=== PATIENT | male | born 1975 | race African-American/Black ===

== ENCOUNTER 2016-11-03 06:39 | Observation (INO) | payer MEDICAID ==
[2016-11-03 06:55] VITALS: BMI 33.9
[2016-11-03 07:00] LABS: AUTOMATED EOSINOPHIL 1.2 % (0-5); AUTOMATED LYMPH 32.8 % (17-44); AUTOMATED MONOCYTE 16.3 % (3-10); AUTOMATED NEUTROPHIL 48.7 % (45-76); MPV 7.5 fL (7.4-10.4)
[2016-11-03 07:14] LABS: BLOOD UREA NITROGEN 14 MG/DL (9-20); CALCIUM 8.9 MG/DL (8.4-10.2); CALCULATED OSMOLALITY 269 MOs/Kg (270-290); CHLORIDE 105 mEq/L (98-107); GLUCOSE 98 MG/DL (70-99); SODIUM LEVEL 139 mEq/L (137-146); TOTAL PROTEIN 7.4 G/DL (6.3-8.2)
--- NOTE | 2016-11-03 07:31 | DIRPT ---
CLINICAL DATA: Chest pain. EXAM: PORTABLE CHEST 1 VIEW COMPARISON: November 13, 2012. FINDINGS: The heart size and mediastinal contours are within normal limits. Both lungs are clear. No pneumothorax or pleural effusion is noted. The visualized skeletal structures are unremarkable. IMPRESSION: No acute cardiopulmonary abnormality seen. Electronically Signed By: Pankaj Zelaya Jr, M.D. On: 11/03/2016 07:28
[2016-11-03 07:40] LABS: PARTIAL THROMB. TIME 25.8 SEC (22-35)
--- NOTE | 2016-11-03 07:50 | EDPRACDOC ---
- General Information Chief Complaint: Chest Pain Stated Complaint: CP Time Seen by Provider: 11/03/16 07:38 Information Source: Patient Mode of Arrival: Residential Home Medications: Home Medications Cimetidine [Tagamet] 400 mg PO .PRN PRN 11/03/16 Allergies/Adverse Reactions: Allergies Allergy/AdvReac Type Severity Reaction Status Date / Time Penicillins Allergy Severe Hives* Verified 11/03/16 07:26 - History of Present Illness Onset: 3 days Chest Pain Location: Reports: Substernal, Left Chest Pain Radiation: Reports: Shoulder (L), Other (BILATERAL EARS) Symptoms Occur: Reports: Gradually, At Rest, With light exertion Cardiac Risk Factors: Reports: Smoker. Denies: Family History, Hyperlipidemia, Hypertension, Diabetes, Cocaine Cardiac History of: Denies: Similar Pain in Past, Cardiac Cath, Stress Test PE Risk Factors: Reports: None Prehospital Care: Reports: None Pain Came On: Reports: Suddenly Pain Status: Resolved Pain Description: Reports: Pressure, Aching, Tightness, Other (PINS AND NEEDLES LEFT ARM) Pain Severity: Moderate (LASTING 5-10 MINUTES.RECU) Pain Worsens With: Reports: Exertion (RNT SEVERAL ALECIA PER DAY.) Pain Improves With: Reports: Rest Associated Signs and Symptoms: Reports: SOB, Diaphoretic. Denies: Nausea, Vomiting, Calf Pain or Swelling, Chest Rash ED Past Medical History - History Reviewed Yes Nurses notes reviewed and agree except as marked No Past Medical History: Yes Patient has no past medical history - Patient Medical History Psychological History: Denies: Depression Surgical History: Reports: No Significant History - Social Medical History Smoking Status: Heavy tobacco smoker (5 or more cigarettes/day or daily pipe/ cigar) ETOH: None Substance Abuse: None Lives With: Spouse Lives In: Home EDM Review of Systems - Review of Systems ROS Negative Except as Marked: Yes All systems reviewed and were negative except as marked - Physical Exam Constitutional: Alert (Awake), No apparent distress Oriented to: Time, Person, Place Last recorded Vital Signs: Last Vital Signs Temp 98.6 F 11/03/16 06:44 Pulse 78 11/03/16 06:44 Resp 20 11/03/16 06:44 BP 147/81 11/03/16 06:44 Pulse Ox 97 11/03/16 06:44 Oxygen Pulse Oxygen Saturation 97 O2 Device Room Air Oxygen Flow Rate Fraction of Inspired Oxygen ( FIO2) - HEENT Head: Normal ( normocephalic) Eye Exam: Normal (PERRL, EOMI, Sclera white) Oropharynx: Normal Nose: No Symptoms Reported (septum midline) Neck: Normal (FROM, trachea at midline) - Respiratory/Cardiovascular Respiratory: Normal - CTA (BBS clear to auscultation without adventitious sounds ) Cardiovascular: Normal (RRR without murmur, gallop or rub) - GI Auscultation: Normal (NABS) Palpation: Normal (Soft,No rebound or guarding, non distended) Tenderness: Non tender Redmond's Sign: Negative - Musculoskeletal Back: Normal (Non-Tender) Extremities: Normal (Normal tone, Pulses 2+ No cyanosis or edema, FROM) - Integumentary Skin: Normal, Warm, Dry Lymphatics: Normal (no adenopathy) - Neurologic Memory Impaired: Normal Motor Function: Normal (Normal tone, Pulses 2+ No cyanosis or edema, FROM) Cranial Nerve: Normal (CN II-X11 intact sensation, strength 5/5) Cerebellar: Normal Mood Description: Normal Perception: Normal ED Chest Pain Exam - Respiratory/Cardiovascular Respiratory: Normal - CTA (clear to auscultation without adventitious sounds) Cardiovascular/Chest: Normal (RRR without murmur, gallop or rub) Radial Pulse: Normal Femoral Pulse: Normal Pedal Pulse: Normal Carotid Arteries: Normal Edema: 5 Chest Palpation: Normal (No chest tenderness) - Action ASA given in the ED: Yes - Results 11/03/16 06:50 11/03/16 06:50 WBC 13.5 xk/uL (3.8-10.8) H 11/03/16 06:50 RBC 4.39 xM/uL (4.70-6.10) L 11/03/16 06:50 Hgb 13.1 g/dL (14.0-18.0) L 11/03/16 06:50 Hct 39.0 % (42-52) L 11/03/16 06:50 MCV 89 fL (80-94) 11/03/16 06:50 MCH 29.9 pg (27-32) 11/03/16 06:50 MCHC 33.7 g/dl (33-36) 11/03/16 06:50 RDW 14.0 % (11.5-14.5) 11/03/16 06:50 Plt Count 265 xk/uL (130-400) 11/03/16 06:50 MPV 7.5 fL (7.4-10.4) 11/03/16 06:50 Neut % (Auto) 48.7 % (45-76) 11/03/16 06:50 Lymph % (Auto) 32.8 % (17-44) 11/03/16 06:50 Giles % (Auto) 16.3 % (3-10) H 11/03/16 06:50 Eos % (Auto) 1.2 % (0-5) 11/03/16 06:50 Baso % (Auto) 1.0 % (0-2) 11/03/16 06:50 Absolute Neuts (auto) 6.48 xk/uL (1.7-8.2) 11/03/16 06:50 Absolute Lymphs (auto) 4.32 xk/uL (0.65-4.75) 11/03/16 06:50 PT 10.5 SEC (9.2-11.2) 11/03/16 06:50 INR 1.0 11/03/16 06:50 APTT 25.8 SEC (22-35) 11/03/16 06:50 Sodium 139 mEq/L (137-146) 11/03/16 06:50 Potassium 3.3 mEq/L (3.5-5.1) L 11/03/16 06:50 Chloride 105 mEq/L (98-107) 11/03/16 06:50 Carbon Dioxide 25 mMOL/L (22-33) 11/03/16 06:50 Anion Gap 12 mEq/L (8-16) 11/03/16 06:50 BUN 14 MG/DL (9-20) 11/03/16 06:50 Creatinine 1.00 MG/DL (0.66-1.25) 11/03/16 06:50 Estimated GFR (MDRD) > 60 mL/min (>=60) 11/03/16 06:50 Glucose 98 MG/DL (70-99) 11/03/16 06:50 Calculated Osmolality 269 MOs/Kg (270-290) L 11/03/16 06:50 Calcium 8.9 MG/DL (8.4-10.2) 11/03/16 06:50 Corrected Calcium 9.0 MG/DL (8.4-10.2) 11/03/16 06:50 Total Bilirubin 1.0 MG/DL (0.2-1.3) 11/03/16 06:50 AST 30 IU/L (17-59) 11/03/16 06:50 ALT 38 IU/L (21-72) 11/03/16 06:50 Alkaline Phosphatase 79 IU/L (38-126) 11/03/16 06:50 Troponin I < 0.01 ng/mL (<.04) 11/03/16 06:50 Total Protein 7.4 G/DL (6.3-8.2) 11/03/16 06:50 Albumin 3.9 G/DL (3.5-5.0) 11/03/16 06:50 Lab Results 11/03/16 11/03/16 11/03/16 06:50 06:50 06:50 WBC 13.5 H RBC 4.39 L Hgb 13.1 L Hct 39.0 L MCV 89 MCH 29.9 MCHC 33.7 RDW 14.0 Plt Count 265 MPV 7.5 Neut % (Auto) 48.7 Lymph % (Auto) 32.8 Giles % (Auto) 16.3 H Eos % (Auto) 1.2 Baso % (Auto) 1.0 Absolute Neuts (auto) 6.48 Absolute Lymphs (auto) 4.32 PT 10.5 INR 1.0 APTT 25.8 Sodium 139 Potassium 3.3 L Chloride 105 Carbon Dioxide 25 Anion Gap 12 BUN 14 Creatinine 1.00 Estimated GFR (MDRD) > 60 Glucose 98 Calculated Osmolality 269 L Calcium 8.9 Corrected Calcium 9.0 Total Bilirubin 1.0 AST 30 ALT 38 Alkaline Phosphatase 79 Troponin I < 0.01 Total Protein 7.4 Albumin 3.9 Laboratory Results - last 24 hr 11/03/16 11/03/16 11/03/16 06:50 06:50 06:50 WBC 13.5 H RBC 4.39 L Hgb 13.1 L Hct 39.0 L MCV 89 MCH 29.9 MCHC 33.7 RDW 14.0 Plt Count 265 MPV 7.5 Neut % (Auto) 48.7 Lymph % (Auto) 32.8 Giles % (Auto) 16.3 H Eos % (Auto) 1.2 Baso % (Auto) 1.0 Absolute Neuts (auto) 6.48 Absolute Lymphs (auto) 4.32 PT 10.5 INR 1.0 APTT 25.8 Sodium 139 Potassium 3.3 L Chloride 105 Carbon Dioxide 25 Anion Gap 12 BUN 14 Creatinine 1.00 Estimated GFR (MDRD) > 60 Glucose 98 Calculated Osmolality 269 L Calcium 8.9 Corrected Calcium 9.0 Total Bilirubin 1.0 AST 30 ALT 38 Alkaline Phosphatase 79 Troponin I < 0.01 Total Protein 7.4 Albumin 3.9 Laboratory Results 11/03/16 06:50 11/03/16 06:50 - EKG EKG #1 EKG Time: 06:47 -: Yes EKG interpreted by me Rate: bpm: 75 [place]: Normal Rhythm: NSR Block: None Hypertrophy: None ST: Normal - Diagnostic Imaging Chest Image interpreted by: Radiologist Patient Name: ARJUN BOUCHER LOC: ED : 1975 AGE: 40 Order Date:11/03/16 Date of Service: Report # [id number] Ord Physician: Arjun Stafford DO Exam # [id number] Emergency Physician: Provider,ER Exam(s): [id number] RAD/DG CHEST PORTABLE CLINICAL DATA: Chest pain. EXAM: PORTABLE CHEST 1 VIEW COMPARISON: November 13, 2012. FINDINGS: The heart size and mediastinal contours are within normal limits. Both lungs are clear. No pneumothorax or pleural effusion is noted. The visualized skeletal structures are unremarkable. IMPRESSION: No acute cardiopulmonary abnormality seen. Electronically Signed By: Pankaj Zelaya Jr, M.D. On: 11/03/2016 07:28 Electronically Signed By: Pankaj Zelaya MD Electronically Signed Date/Time: [id number] Dictate Date/Time: 11/03/16726 Technologist: Alesha Patel Transcribed By: Haylee Transcribed Date/Time: 11/03/16727 - Departure Disposition: Admit IP To This Hospital Condition: Stable Final Diagnosis: Tobacco abuse Chest pain Qualifiers: Chest pain type: other chest pain Qualified Code(s): R07.89 - Other chest pain ; R07.8 - Other chest pain Instructions: Chest Pain (ED), Chest Wall Pain Decision to Admit Time: 07:59 Decision to admit date: 11/03/16 Decision to admit: from ED - Physician Consulted Hospitalist Time Called: 07:59 Provider Called: Danielle Acuña Time Quality Auditor Returned Call: 07:59
[2016-11-03] MEDS ORDERED: NITROGLYCERINE 2 % OINTMENT PACK TOP ONE (07:52)
[2016-11-03] MEDS ORDERED: ASPIRIN (CHEWABLE) 81 MG TAB PO ONE (07:52)
[2016-11-03] MEDS ORDERED: Enoxaparin 1 mg per kg per dose SQ ONE (07:59)
[2016-11-03] MEDS ORDERED: TEMAZEPAM 15 MG CAP PO PRN (08:14)
[2016-11-03] MEDS ORDERED: MORPHINE 2 MG/ML INJECTION IV PRN (08:14)
[2016-11-03] MEDS ORDERED: BENZONATATE 100 MG PERLES PO PRN (08:14)
[2016-11-03] MEDS ORDERED: NITROGLYCERINE 0.4 MG TAB SL PRN (08:14)
[2016-11-03] MEDS ORDERED: ACETAMINOPHEN 650 MG SUPP PR PRN (08:14)
[2016-11-03] MEDS ORDERED: DOCUSATE-SENNA CONCENTRATE TAB PO PRN (08:14)
[2016-11-03] MEDS ORDERED: METOCLOPRAMIDE 10 MG/2 ML VIAL IV PRN (08:14)
[2016-11-03] MEDS ORDERED: ONDANSETRON HCL 4 MG/2 ML VIAL IV PRN (08:14)
[2016-11-03] MEDS ORDERED: NITROGLYCERINE 2 % OINTMENT PACK ONE (08:19)
[2016-11-03] MEDS: ENOXAPARIN SODIUM 80 MG, ENOXAPARIN SODIUM 30 MG SQ ONE ×6 (08:24→11:58)
--- NOTE | 2016-11-03 08:50 | HISTPHYS ---
- Chief Complaint CHEST PAIN - History of Present Illness Mr. Arias Gaytan is a 40 year old AfroAmerican man who presented to the ED this morning complaining of chest pain that is burning or stabbing in character , and has been coming and going for three days. Today he had more pressure associated with it and it is radiating to the left shoulder and arm. He rated it a 7-8/10 in intensity. He has ahd some flu-like symptoms for the past week or two, but his fiancee states that most of that has cleared up. He is a smoker , and smokes 1/2 pack of cigarettes daily and has done so for over 20 years. - Medical History Cardiac History: Reports: No Significant History. Denies: Hypertension, Stress Test Respiratory History: Reports: No Significant History, Cough GI/ History: Reports: No Significant History, Gastroesophageal Reflux Musculoskeletal History: Reports: No Significant History Systemic History: Reports: No Significant History Neurological History: Reports: No Significant History Psychological History: Reports: No Significant History. Denies: Depression - Surgical History Reports: No Significant History - Medictions/Allergies Allergies Penicillins Allergy (Severe, Verified 11/03/16 07:26) Hives* Current Medication List: Reviewed Home Medications Cimetidine [Tagamet] 400 mg PO .PRN PRN 11/03/16 - Family History Reports: No Significant History - Social History Travel Outside of [place] in the Last 3 Months?: No Lives: with Significant Other Smoking Status: Heavy tobacco smoker (5 or more cigarettes/day or daily pipe/ cigar) (1/2 ppd) Social History: Denies: Alcohol Use - Review of Systems Constitutional: No Symptoms Reported Eyes: No Symptoms Reported Ears: No Symptoms Reported Nose: No Symptoms Reported Mouth: No Symptoms Reported Throat/Neck: No Symptoms Reported, Snoring Respiratory: Cough, Shortness of Breath, Dyspnea. negative: Wheezing Cardiovascular: Chest Pain. negative: Cyanosis, Edema, Orthopnea, Palpitations , PND, Syncope Gastrointestinal: Nausea, Abdominal Pain (epigastric, LUQ), Heartburn Genitourinary: No Symptoms Reported Neurological: No Symptoms Reported Musculoskeletal:: Chronic low back pain Integumentary: No Symptoms Reported Allergic/Immunologic: No Symptoms Reported Hematologic: No Symptoms Reported Endocrine: No Symptoms Reported Psychiatric: No Symptoms Reported, Anxiety - Physical Exam Vital Signs: Initial Vitals Temperature 98.6 F 11/03/16 06:44 Pulse Rate 78 11/03/16 06:44 Respiratory Rate 20 11/03/16 06:44 Blood Pressure 147/81 11/03/16 06:44 Pulse Oxygen Saturation 97 11/03/16 06:44 Constitutional: No apparent distress, Alert Oriented to: Time, Person, Place - HEENT Head: Normal Eye: Normal Oropharynx: Normal Tympanic Membrane: Normal ENT EAC: Cerumen (L external auditory canal obstructed, R is clear) TMJ: Normal Nose: Congestion Respiratory: Normal - CTA Cardiovascular: Normal (regular rhythm and rate, no carotid bruit, no JVD, no murmur) - GI Auscultation: Normal Palpation: Normal (soft, nondistended, moderately obese) Tenderness: Mild, LUQ, Epigastric Redmond's Sign: Negative Rectal Exam: Deferred - Musculoskeletal Back: Normal Extremities: Normal, Pedal Pulse (strong), Radial Pulse (strong) Spine: normal alignment, normal inspection - Integumentary Skin: Warm, Dry Lymphatics: Normal - Neurologic Memory Impaired: Normal Motor Function: Normal Cranial Nerve: Normal Cerebellar: Normal Mood Description: Normal Thought: Coherent Perception: Normal - Focused CV Perfusion Exam Vital Signs: Last Vital Signs Temp 98.6 F 11/03/16 06:44 Pulse 70 11/03/16 08:21 Resp 18 11/03/16 08:21 BP 111/74 11/03/16 08:21 Pulse Ox 96 11/03/16 08:21 - Lab Results Laboratory Tests 11/03/16 11/03/16 11/03/16 06:50 06:50 06:50 WBC 13.5 H Hgb 13.1 L Hct 39.0 L Plt Count 265 PT 10.5 INR 1.0 APTT 25.8 Sodium 139 Potassium 3.3 L Chloride 105 Carbon Dioxide 25 Anion Gap 12 BUN 14 Creatinine 1.00 Estimated GFR (MDRD) > 60 Glucose 98 Calculated Osmolality 269 L Corrected Calcium 9.0 AST 30 ALT 38 Troponin I < 0.01 - Diagnostic Findings EKG: sinus rhthym, rate 75 bpm, NS-IVCD, no acute ST-changes CXR: IMPRESSION: No acute cardiopulmonary abnormality seen. Electronically Signed By: Pankaj Zelaya Jr, M.D. On: 11/03/2016 07:28 - Assessment (1) Chest pain R07.9 - CHEST PAIN, UNSPECIFIED Acute Present on Admission: Yes Qualifiers: Chest pain type: precordial pain Qualified Code(s): R07.2 - Precordial pain Observation in chest pain center, place on telemetry, obtain serial troponins. Begin aspirin, NTG, and beta-inge. NTG as needed for chest pain, morphine for beak-through pain if not relieved by Nitrates. If all troponins are normal , scedule exercise stress testing in AM. (2) GERD (gastroesophageal reflux disease) K21.9 - GASTRO-ESOPHAGEAL REFLUX DISEASE WITHOUT ESOPHAGITIS Acute Present on Admission: Yes Qualifiers: Esophagitis presence: without esophagitis Qualified Code(s): K21.9 - Gastro -esophageal reflux disease without esophagitis Begin Protonix twice a day. Patient states he takes OTC medication for this at home. (3) Leukocytosis D72.829 - ELEVATED WHITE BLOOD CELL COUNT, UNSPECIFIED Acute Present on Admission: Yes Qualifiers: Leukocytosis type: monocytosis Qualified Code(s): D72.821 - Monocytosis ( symptomatic) Probably due to recent viral syndrome or bronchitis. (4) Tobacco abuse Z72.0 - TOBACCO USE Acute Present on Admission: Yes Encouraged smoking cessation. Case Care Discussed with: Patient, Family, Nursing Staff Total Time: 55 min Critical Care: No Couseling Time (>50% in counseling/coordination): Yes Code: 09372
[2016-11-03] MEDS ORDERED: Pharmacy Order Set Alert SCH (09:00)
[2016-11-03] MEDS ORDERED: POTASSIUM CHLORIDE 20 MEQ/15 ML ORAL SOLN PO ONE (09:00)
[2016-11-03] MEDS: ACETAMINOPHEN 325 MG/TAB TABLET PO PRN ×3 (09:55→23:15)
[2016-11-03] MEDS: SIMETHICONE 80 MG TAB PO PRN ×2 (09:55→18:07)
[2016-11-03] MEDS ORDERED: Vaccine Screening Complete SCH (10:00)
[2016-11-03] MEDS: METOPROLOL TARTRATE 25 MG TAB PO SCH ×2 (12:01→22:00)
[2016-11-03] MEDS: PANTOPRAZOLE 40 MG TAB PO SCH (16:21)
[2016-11-03] MEDS ORDERED: OXYCODONE HCL 5 MG TABLET PO PRN (18:27)
[2016-11-04] MEDS ORDERED: ATROPINE 1 MG/10 ML PFS IV ONE (02:52)
[2016-11-04] MEDS ORDERED: ATROPINE 1 MG/10 ML PFS IV PRN (04:45)
[2016-11-04] MEDS: PANTOPRAZOLE 40 MG TAB PO SCH (04:58)
[2016-11-04 06:41] LABS: LDL (calc.) 103.6 MG/DL (<100); VLDL (calc.) 35.4 MG/DL (5-40)
[2016-11-04] MEDS ORDERED: PNEUMOCOCCAL 0.5 ML VIAL IM ONE (08:00)
[2016-11-04] MEDS ORDERED: FLU VACCINE (Afluria) 0.5 ML DOSE IM ONE (08:00)
[2016-11-04] MEDS ORDERED: SESTAMIBI 8 MCI V IV ONE (10:14)
[2016-11-04 12:08] VITALS: BP 129/60; TEMP 97.6
--- NOTE | 2016-11-04 13:01 | PCM.DCS92 ---
- Final/Secondary Discharge Diagnosis (1) Chest pain Acute R07.9 - CHEST PAIN, UNSPECIFIED Present on Admission: Yes precordial pain R07.2 - Precordial pain Comment: Stress test negative for ischemia. Says he cannot stay and talk any further and requests immediate discharge. Recommend he follow-up with his primary physician (2) GERD (gastroesophageal reflux disease) Acute K21.9 - GASTRO-ESOPHAGEAL REFLUX DISEASE WITHOUT ESOPHAGITIS Present on Admission: Yes without esophagitis K21.9 - Gastro-esophageal reflux disease without esophagitis Comment: Begin Protonix twice a day. Patient states he takes OTC medication for this at home. (3) Leukocytosis Acute D72.829 - ELEVATED WHITE BLOOD CELL COUNT, UNSPECIFIED Present on Admission: Yes monocytosis D72.821 - Monocytosis (symptomatic) Comment: Probably due to recent viral syndrome or bronchitis. (4) Tobacco abuse Acute Z72.0 - TOBACCO USE Present on Admission: Yes Comment: Encouraged smoking cessation. Discharge Disposition: Home Discharge Condition: Improved Cognitive Discharge Status: Unimpaired Fuctional Discharge Status: Independent Physician Follow up/Referrals: Vanessa Grande PA [Primary Care Provider] - 11/11/16 10:30 am Home Medications / New Prescriptions: Continue Cimetidine [Tagamet] 400 mg PO .PRN PRN PRN Reason: Acid Reflux Discharge Home Medication List Cimetidine [Tagamet] 400 mg PO .PRN PRN 11/03/16 [History Confirmed 11/03/16 Last Taken 11/01/16] O2 Device: Room Air Diet at Discharge: As Tolerated Activity: No Restrictions Call Office For: Worsening Symptoms - DC Summary Notes Hospital Course Note:: Discharge summary on patient named ARJUN BOUCHER admitted to [facility] on 11/03/16 by Danielle Acuña MD. Date of discharge is []. Mr. Boucher is a 40-year-old gentleman who presented to the hospital with complaint of chest pain. Described as burning and stabbing in character is been often on for several days. On the day of hospitalization it was more pressure-like and radiating to his left arm and shoulder. He was admitted to the hospital under chest pain center protocol. He underwent stress testing which was negative for any evidence of ischemia. As soon as he hurt his stress test was okay he was adamant about leaving urgently. He states he will follow up with his primary physician and call or return should his symptoms recur. Total Time: 35 minutes - Physical Exam Vital Signs: Last Vital Signs Temp 97.6 F 11/04/16 12:00 Pulse 58 L 11/04/16 12:00 Resp 18 11/04/16 12:00 BP 129/60 11/04/16 12:00 Pulse Ox 98 11/04/16 12:00 Oxygen Pulse Oxygen Saturation 98 O2 Device Room Air Oxygen Flow Rate Fraction of Inspired Oxygen ( FIO2) Constitutional: No apparent distress, Alert, Well nourished, Well appearing Oriented to: Time, Person, Place - HEENT Head: Normal Eye: Normal Oropharynx: Normal Tympanic Membrane: Normal ENT EAC: Cerumen (L external auditory canal obstructed, R is clear) TMJ: Normal Nose: Congestion - Respiratory/Cardiovascular Respiratory: Normal - CTA Cardiovascular: Normal (regular rhythm and rate, no carotid bruit, no JVD, no murmur) - GI Auscultation: Normal Palpation: Normal (soft, nondistended, moderately obese) Tenderness: Mild, LUQ, Epigastric Redmond's Sign: Negative Rectal Exam: Deferred - Musculoskeletal Back: Normal Extremities: Normal, Pedal Pulse (strong), Radial Pulse (strong) - Integumentary Skin: Warm, Dry Lymphatics: Normal - Neurologic Memory Impaired: Normal Motor Function: Normal Cranial Nerve: Normal Cerebellar: Normal Mood Description: Normal Thought: Coherent Perception: Normal
[2016-11-04 13:20] VITALS: PULSE 56
--- NOTE | 2016-11-04 15:03 | DIRPT ---
CLINICAL DATA: Chest pain EXAM: NUCLEAR MEDICINE CARDIOLITE Neto protocol RESTING/STRESS TECHNIQUE: Cardiolite cardiac stress test Neto protocol RADIOPHARMACEUTICALS: Eight in 25 millicuries TC 99 M Cardiolite COMPARISON: None. FINDINGS: A Cardiolite cardiac stress test Neto protocol was performed. The stress portion of the test was supervised by Dr. Loza. I reviewed the images with him. There is no evidence of ischemia or significant scar. Anteroapical chest wall attenuation is noted. Normal wall motion and contractility. Left ventricle ejection fraction is 57%. IMPRESSION: There is no evidence of ischemia or significant scar. Anteroapical chest wall attenuation is noted. Normal wall motion and contractility. Left ventricle ejection fraction is 57%. Electronically Signed By: Korey Arredondo M.D. On: 11/04/2016 15:01
--- NOTE | 2016-11-04 15:51 | CAPUEKG ---
[place], [place] Test Date: 2016-11-04 Pat Name: ARJUN BOUCHER Department: Room: 438 Gender: Male Civil Designer: DAY VOGTB: Requested By: Order Number: Reading MD: Natanael Loza MD Measurements Intervals [place] Rate: 48 P: 36 AK: 178 QRS: 11 QRSD: 102 T: 7 QT: 436 QTc: 389 Interpretive Statements sinus bradycardia Abnormal ECG Electronically Signed On 11-04-16 15:50:47 EST by Natanael Loza MD <[id number]> [id number]
--- NOTE | 2016-11-04 15:51 | CAPUEKG ---
[place], [place] Test Date: 2016-11-03 Pat Name: ARJUN BOUCHER Department: Room: 438 Gender: Male Tool Room Gear Machine Operator: BILLY WALKER: Requested By: Order Number: Reading MD: Natanael Loza MD Measurements Intervals [place] Rate: 53 P: 72 WI: 182 QRS: -3 QRSD: 96 T: 2 QT: 434 QTc: 407 Interpretive Statements Sinus bradycardia Moderate voltage criteria for LVH, may be normal variant Nonspecific ST abnormality Abnormal ECG Electronically Signed On 11-04-16 15:51:13 EST by Natanael Loza MD [email or web address] [id number]
--- NOTE | 2016-11-04 17:10 | PCM.STRESS ---
This is a treadmill stress Cardiolite test. The resting heart rate and blood pressure, 47 beats per minute and 116/80. The EKG shows sinus bradycardia and is otherwise normal. The peak heart rate and blood pressure, 148 beats per minute 170/100. The patient was stressed by the Neto protocol 3 minutes 0 0 seconds stage II achieving 82% of the maximum predicted heart rate of 179 beats per minute and 7 Mets. The stress EKG ST segment response is normal, negative for ischemia. The blood pressure response is normal. The rhythm is sinus, there is no arrhythmia. Symptoms present included fatigue, there is no chest pain. The exercise tolerance is normal. The radiologist will generate the Cardiolite image report.
== END 2016-11-04 13:02 | disposition home or self-care (01) ==
LOC: ED 06:39 → PCU 08:20
PROVIDERS: ADMIT Family Medicine; ATTEND Hospitalist
DX: R07.89 Other chest pain (principal); K21.9 Gastro-esophageal reflux disease without esophagitis; D72.829 Elevated white blood cell count, unspecified; F17.210 Nicotine dependence, cigarettes, uncomplicated; Z23 Encounter for immunization
CPT/HCPCS: 36415; 71010; 78452; 80053; 80061; 82947; 84484; 85025; 85610; 85730; 87804; 90471; 90472; 90656; 90732; 93005; 93017; 96372; 99284; 99406; A9500; G0378; J1650; J3490; J0461